=== PATIENT | male | born 1935 | race Caucasian/White ===

== ENCOUNTER 2016-11-28 10:27 | Inpatient (IN) | payer BC, MEDICARE ==
[2016-11-28] VITALS (90 sets, daily range): BP systolic 89–104; BP diastolic 45–89; PULSE 68–88; TEMP 97.1–98.9; O2SAT 83–100
[~2016-11-28] VITALS: Ht 167.6 cm; Wt 128.0 kg
[~2016-11-28 10:27] MED LIST: ACIPHEX20 MG PO; ALTACE 5MG5 MG PO; ALTACE2.5 MG PO; AMBIEN 10MG10 M1 PO; AMBIEN 10MG10 MG PO; ASPIR-LOW81 MG PO; ASPIRIN 81M81 MG/TA2 PO; ASPIRIN E.C. 8181 MG PO; BYSTOLIC PO; BYSTOLIC10 MG PO; CALCIUM 6001 TA1 PO; CARDI-OMEGA1000 MG PO; CARDIOSTEROL; CARDIOSTEROL PO; CIPRO 500MG TA500 MG PO; COUMADIN 22.5 MG/TAB PO; COUMADIN 5MG5 MG/TAB PO; COUMADIN4 MG PO; COUMADIN5 MG PO; DEMADEX20 MG PO; DOXYCYCLINE 10100 MG PO; FISH OIL1000 MG PO; FLEXERIL 1010 MG/TAB PO; FLONASE NASAL S16 GM NS; FLONASEALLERGY NS; FLOVENT 110MCG7.9 GM IH; FOLIC ACID1 MG PO; INSPRA50 MG PO; KLOR-CON 1010 MEQ PO; LANSOPRAZOLE30 MG PO; LASIX 40MG TABL40 MG PO; LASIX 80MG TABL80 MG PO; LASIX80 MG PO; MAG-OX 400400 MG/TAB PO; MAGNESIUM200 MG PO; MUCINEX 60600 MG/TA1 PO; MUCINEX600 M1 PO; MULTAQ400 MG PO; MULTIPLE VITAMI1 CAP PO; NIASPAN 500MG500 MG PO; NIASPAN500 MG PO; NITROSTAT0.4 MG/TAB SL; NORCO 325 MG-51 TAB PO; PEN-VEE K500 MG PO; PHENERGAN W/CO120 ML PO; POTASSIUM CH2 MEQ/ML PO; PREVACID 30MG30 M1 PO; PREVACID 30MG30 MG PO; PROMETHAZINE V473 M2 PO; REQUIP 0.5MG0.5 MG PO; REQUIP0.25 MG PO; SINGULAIR 110 MG/TAB PO; TIKOSYN PO; TIKOSYN0.5 MG PO; TRAMADOL PO; ULTRAM ER100 MG PO; ULTRAM100 MG PO; VITAMIN; VITAMIN C BUFF500 MG PO; VITAMIN C500 MG PO; VITAMIN D1000 IU PO; XOPENEX 1.1.25 MG/3 IH
[2016-11-28 12:00] LABS: BASO % 0.5 % (0.0-2.0); EOS % 0.5 % (0-4.0); GRAN # 6.4 (1.4-6.5); GRAN % 77.8 % (42.2-75.2); LYMPH # 0.8 (1.2-3.4); LYMPH % 9.6 % (20.0-51.0); MEAN CELL VOLUME 94 fl (80.0-100.0); MEAN CORPUSCULAR HGB CONC 33 g/dl (33.0-37.0); MEAN PLATELET VOLUME 9.4 fl (7.4-10.4); MONO # 0.9 (0.1-0.6); PLATELET COUNT 206 K/mm3 (130-400); REDCELL DISTRIBUTION WIDTH-CV 16.6 % (11.5-14.5); WHITE BLOOD COUNT 8.3 K/mm3 (4.8-10.8)
[2016-11-28 12:08] LABS: HEMATOCRIT 30.2 % (42.0-52.0); HEMOGLOBIN 9.9 g/dl (13.5-18.0); MEAN CORPUSCULAR HEMOGLOBIN 31 pg (27.0-31.0)
[2016-11-28 12:13] LABS: INR 2.3 (0.8-3.0); PROTHROMBIN TIME 26.2 SECONDS (9.7-12.8)
[2016-11-28 12:16] LABS: PARTIAL THROMBOPLASTIN TIME 41.1 SECONDS (26.0-37.0)
[2016-11-28 12:30] LABS: ADJUSTED CALCIUM 9.5 mg/dL (8.4-10.2); ALANINE AMINOTRANSFERASE 29 U/L (21-72); ALBUMIN 4.1 gm/dL (3.5-5.0); ALKALINE PHOSPHATASE 144 U/L (50-136); ANION GAP 15 mmol/L (7-16); BILIRUBIN,TOTAL 1.4 mg/dL (0.0-1.0); CALCIUM 9.6 mg/dL (8.4-10.2); CARBON DIOXIDE 22 mmol/L (22-30); CHLORIDE 98 mmol/L (98-107); CREATININE, serum 2.52 mg/dL (0.66-1.25); GLUCOSE 114 mg/dL (74-106); MAGNESIUM 3.1 mg/dL (1.6-2.3); PHOSPHOROUS 5.2 mg/dL (2.5-4.5); SODIUM 135 mmol/L (137-145); TOTAL PROTEIN 8.7 gm/dL (6.4-8.2)
[2016-11-28 12:37] LABS: AMMONIA 14 umol/L (11-35)
[2016-11-28 12:41] LABS: POTASSIUM 6.1 mmol/L (3.4-5.0)
[2016-11-28 12:42] LABS: BLOOD UREA NITROGEN 83 mg/dL (9-20)
[2016-11-28 12:43] LABS: TROPONIN-I < 0.012 ng/mL (0.000-0.034)
[2016-11-28 12:54] LABS: PH 5 (5-8); SQUAMOUS EPITHELIAL 0-2 /hpf; URINE APPEARANCE Clear; URINE BACTERIA None Seen /hpf; URINE BILIRUBIN Negative (NEGATIVE); URINE BLOOD Negative (NEGATIVE); URINE COLOR Yellow; URINE GLUCOSE Negative (NEGATIVE); URINE KETONE Negative (NEGATIVE); URINE RBC 0-2 /hpf; URINE UROBILINOGEN Negative (NEGATIVE); URINE WBC 0-2 /hpf
[2016-11-28] MEDS ORDERED: ULORIC40 MG PO (16:24)
[2016-11-28] MEDS ORDERED: NEURONTIN100 MG/CAP PO (16:24)
[2016-11-28] MEDS ORDERED: CEPHALEXIN500 M1 PO (16:25)
[2016-11-28] MEDS ORDERED: ZOHYDRO ER10 MG PO (16:25)
[2016-11-28] MEDS ORDERED: COZAAR 50MG50 MG/TAB PO (16:26)
[2016-11-28 18:00] LABS: CALCIUM 9.8 mg/dL (8.4-10.2); CREATININE, serum 2.43 mg/dL (0.66-1.25)
[2016-11-28 18:03] LABS: POTASSIUM 6.1 mmol/L (3.4-5.0)
[2016-11-28] MEDS ORDERED: FLEXERIL 1010 MG/TAB PO (19:00)
[2016-11-28 19:12] LABS: THYROID STIMULATING HORMONE 2.52 uIU/mL (0.465-4.680)
[2016-11-29] VITALS (1167 sets, daily range): BP systolic 99–125; BP diastolic 51–95; PULSE 60–74; TEMP 97.6–98.5; O2SAT 71–100
[2016-11-29 04:28] LABS: BASO % 0.5 % (0.0-2.0); EOS # 0.1 (0.0-0.7); EOS % 0.6 % (0-4.0); GRAN % 72.7 % (42.2-75.2); LYMPH # 1.1 (1.2-3.4); LYMPH % 13.9 % (20.0-51.0); MEAN CELL VOLUME 97 fl (80.0-100.0); MEAN CORPUSCULAR HGB CONC 31 g/dl (33.0-37.0); MEAN PLATELET VOLUME 9.1 fl (7.4-10.4); MONO % 11.7 % (1.7-9.3); PLATELET COUNT 178 K/mm3 (130-400); RED BLOOD COUNT 3.04 M/mm3 (4.20-5.60); REDCELL DISTRIBUTION WIDTH-CV 17.1 % (11.5-14.5); WHITE BLOOD COUNT 8.2 K/mm3 (4.8-10.8)
[2016-11-29 04:29] LABS: HEMATOCRIT 29.4 % (42.0-52.0); HEMOGLOBIN 9.2 g/dl (13.5-18.0); MEAN CORPUSCULAR HEMOGLOBIN 30 pg (27.0-31.0)
[2016-11-29 04:34] LABS: INR 2.4 (0.8-3.0); PROTHROMBIN TIME 27.9 SECONDS (9.7-12.8)
[2016-11-29 04:44] LABS: CALCIUM 8.9 mg/dL (8.4-10.2); CREATININE, serum 2.23 mg/dL (0.66-1.25); PHOSPHOROUS 6.2 mg/dL (2.5-4.5)
[2016-11-29 22:26] LABS: CREATININE, serum 1.72 mg/dL (0.66-1.25); SODIUM 136 mmol/L (137-145)
[2016-11-29 22:56] LABS: URINE 24 HOUR CREATININE 1.1 gm/24 hr (1.0-2.0)
[2016-11-30] VITALS (1221 sets, daily range): BP systolic 100–136; BP diastolic 52–118; PULSE 60–70; TEMP 97.8–98.7; O2SAT 62–100
[2016-11-30 04:54] LABS: BASO % 0.7 % (0.0-2.0); EOS # 0.1 (0.0-0.7); GRAN # 3.9 (1.4-6.5); GRAN % 71.8 % (42.2-75.2); LYMPH # 0.8 (1.2-3.4); LYMPH % 15.5 % (20.0-51.0); MEAN CELL VOLUME 98 fl (80.0-100.0); MEAN CORPUSCULAR HGB CONC 31 g/dl (33.0-37.0); MEAN PLATELET VOLUME 9.3 fl (7.4-10.4); MONO # 0.5 (0.1-0.6); MONO % 9.4 % (1.7-9.3); PLATELET COUNT 132 K/mm3 (130-400); RED BLOOD COUNT 3.38 M/mm3 (4.20-5.60); REDCELL DISTRIBUTION WIDTH-CV 16.7 % (11.5-14.5); WHITE BLOOD COUNT 5.4 K/mm3 (4.8-10.8)
[2016-11-30 04:58] LABS: HEMATOCRIT 33.1 % (42.0-52.0); HEMOGLOBIN 10.2 g/dl (13.5-18.0); MEAN CORPUSCULAR HEMOGLOBIN 30 pg (27.0-31.0)
[2016-11-30 05:11] LABS: CALCIUM 8.7 mg/dL (8.4-10.2); CREATININE, serum 1.72 mg/dL (0.66-1.25); POTASSIUM 4.6 mmol/L (3.4-5.0)
[2016-11-30 14:31] LABS: ALBUMIN FRACTION 3.2 g/dL (2.6-4.5); ALBUMIN PERCENTAGE 46.4 % (48.7-61.8); ALPHA 1 FRACTION 0.5 g/dL (0.3-0.5); ALPHA 1 PERCENTAGE 6.7 % (3.4-8.3); ALPHA 2 FRACTION 0.8 g/dL (0.6-1.2); BETA 1 FRACTION 0.4 g/dL (0.4-0.6); BETA 2 FRACTION 0.5 g/dL (0.2-0.5); BETA 2 PERCENTAGE 6.6 % (3.8-7.7); GAMMA FRACTION 1.5 g/dL (0.4-1.7); GAMMA PERCENTAGE 22.3 % (8.1-23.0); MONOCLONAL 1 FRACTION 0.2 g/dL (()); SERUM PROTEIN TOTAL 6.8 g/dL (6.0-7.6)
[2016-11-30 23:44] LABS: PROTEIN TIMED URINE 304.5 mg/24hrs (0.0-299.0)
[2016-12-01] VITALS (509 sets, daily range): BP systolic 114–141; BP diastolic 46–91; PULSE 63–98; TEMP 97.7–98.5; O2SAT 66–100
[2016-12-01 06:06] LABS: BASO % 0.4 % (0.0-2.0); EOS # 0.1 (0.0-0.7); EOS % 1.3 % (0-4.0); GRAN # 3.9 (1.4-6.5); GRAN % 75.6 % (42.2-75.2); LYMPH # 0.7 (1.2-3.4); LYMPH % 13.3 % (20.0-51.0); MEAN CELL VOLUME 99 fl (80.0-100.0); MEAN CORPUSCULAR HGB CONC 31 g/dl (33.0-37.0); MEAN PLATELET VOLUME 9.2 fl (7.4-10.4); MONO # 0.5 (0.1-0.6); PLATELET COUNT 147 K/mm3 (130-400); RED BLOOD COUNT 2.73 M/mm3 (4.20-5.60); REDCELL DISTRIBUTION WIDTH-CV 16.6 % (11.5-14.5); WHITE BLOOD COUNT 5.2 K/mm3 (4.8-10.8)
[2016-12-01 06:10] LABS: CALCIUM 8.9 mg/dL (8.4-10.2); CREATININE, serum 1.49 mg/dL (0.66-1.25); POTASSIUM 4.4 mmol/L (3.4-5.0)
[2016-12-01 06:19] LABS: HEMATOCRIT 26.9 % (42.0-52.0); HEMOGLOBIN 8.4 g/dl (13.5-18.0); MEAN CORPUSCULAR HEMOGLOBIN 31 pg (27.0-31.0)
[2016-12-01 12:41] LABS: KAPPA FREE LIGHT CHAIN-SERUM 11.2 mg/dL (()); KAPPA LAMBDA RATIO 1.7 (())
[2016-12-02 03:49] VITALS: BP 137/63; PULSE 65; TEMP 97.7
[2016-12-02 09:00] VITALS: BP 118/53; PULSE 69; TEMP 98.4
[2016-12-02 10:51] LABS: CALCIUM 9.3 mg/dL (8.4-10.2); CREATININE, serum 1.34 mg/dL (0.66-1.25); POTASSIUM 4.2 mmol/L (3.4-5.0)
[2016-12-02 12:01] VITALS: BP 145/80; PULSE 72; TEMP 98.1
[2016-12-02 15:40] VITALS: BP 137/58; PULSE 64; TEMP 98.2
[2016-12-02 20:31] VITALS: BP 129/58; PULSE 66; TEMP 99.2
[2016-12-02 22:38] VITALS: BP 137/51; PULSE 67; TEMP 98
[2016-12-03 04:03] VITALS: BP 145/54; PULSE 68; TEMP 98.2
[2016-12-03 07:20] LABS: INR 2.5 (0.8-3.0); PROTHROMBIN TIME 28.3 SECONDS (9.7-12.8)
[2016-12-03 07:27] LABS: CALCIUM 9.4 mg/dL (8.4-10.2); CREATININE, serum 1.22 mg/dL (0.66-1.25)
[2016-12-03 07:57] VITALS: BP 132/49; PULSE 68; TEMP 98.4
[2016-12-03] MEDS ORDERED: CLARITIN 1010 MG/TAB PO (11:17)
[2016-12-03] MEDS ORDERED: NEURONTIN100 MG/CAP PO (11:18)
[2016-12-03] MEDS ORDERED: THIAMINE 1100 MG/TAB PO (11:18)
[2016-12-03] MEDS ORDERED: FOLIC ACID 11 MG/TA1 PO (11:18)
[2016-12-03] MEDS ORDERED: NORCO 325 MG-51 TAB PO (11:19)
[2016-12-03] MEDS ORDERED: LASIX 20MG TABL20 MG PO (11:49)
[2016-12-03 11:51] VITALS: BP 137/60; PULSE 78; TEMP 98.3
[2016-12-03] MEDS ORDERED: ILOTYCIN5 MG/GM OU (11:51)
[2016-12-03 13:53] VITALS: BP 137/60; PULSE 78; TEMP 98.3
[2016-12-24 15:49] LABS: ALBUMIN FRACTION 3.2 g/dL (2.6-4.5); ALBUMIN PERCENT 46.4 % (48.7-61.8); ALPHA 1 FRACTION 0.5 g/dL (0.3-0.5); ALPHA 1 PERCENT 6.7 % (3.4-8.3); ALPHA 2 FRACTION 0.8 g/dL (0.6-1.2); BETA 1 FRACTION 0.4 g/dL (0.4-0.6); BETA 2 FRACTION 0.5 g/dL (0.2-0.5); BETA 2 PERCENT 6.6 % (3.8-7.7); IEPS GAMMA FRACTION 1.5 g/dL (0.4-1.7); IEPS GAMMA PERCENTAGE 22.3 % (8.1-23.0); IEPS IGA 335 mg/dL (101-645); IEPS IGG 1605 mg/dL (540-1822); IEPS IGM 100 mg/dL (22-240); IEPS MON1E 0.2 g/dL (()); IEPS TP 6.8 g/dL (6.0-7.6)
[2017-01-15] MEDS ORDERED: LEVAQUIN 5500 MG/TA1 PO (14:12)
[2017-01-15] MEDS ORDERED: COUMADIN 5MG5 MG/TAB PO (14:14)
[2017-01-15] MEDS ORDERED: COUMADIN 22.5 MG/TAB PO (14:15)
== END 2016-12-03 14:30 | DRG 682 ==
LOC: COL.ER 10:27 → IMCU 13:11 → MEDICAL 13:11
PROVIDERS: Emergency Medicine; Family Medicine; Internal Medicine Nephrology; Psychiatry & Neurology Neurology
DX: N17.0 Acute kidney failure with tubular necrosis (principal); G93.41 Metabolic encephalopathy; I50.30 Unspecified diastolic (congestive) heart failure; L97.321 Non-pressure chronic ulcer of left ankle limited to breakdown of skin; Z68.41 Body mass index [BMI] 40.0-44.9, adult; E87.5 Hyperkalemia; I10 Essential (primary) hypertension; G47.33 Obstructive sleep apnea (adult) (pediatric); E66.01 Morbid (severe) obesity due to excess calories; I35.0 Nonrheumatic aortic (valve) stenosis; G25.5 Other chorea; E78.5 Hyperlipidemia, unspecified; Z86.718 Personal history of other venous thrombosis and embolism; Z79.01 Long term (current) use of anticoagulants; Z95.1 Presence of aortocoronary bypass graft; Z86.73 Personal history of transient ischemic attack (TIA), and cerebral infarction without residual deficits; Z87.891 Personal history of nicotine dependence; Z95.0 Presence of cardiac pacemaker
CPT/HCPCS: 99223-AI; 99233-AI; 99239; J0610; J1170; J1560; J1644; J1815; J2060; J3360; J7030

== ENCOUNTER → 2016-12-06 | Outpatient (CLI) | payer BC, MEDICARE ==
[~2016-12-06] MED LIST changes: +BUMEX 1MG TA1 MG/TA1 PO; +CEPHALEXIN500 M1 PO; +CLARITIN 1010 MG/TAB PO; +COZAAR 50MG50 MG/TAB PO; +FOLIC ACID 11 MG/TA1 PO; +ILOTYCIN5 MG/GM OU; +INSPRA25 MG PO; +LASIX 20MG TABL20 MG PO; +LEVAQUIN 5500 MG/TA1 PO; +LYRICA 50MG CAP50 MG PO; +MIRALAX PA17 GM/Dose PO; +MUCINEX CHILD2 PO; +NEURONTIN100 MG/CAP PO; +NORCO 325 MG-7.1 TAB PO; +NYAMYC100000 U/G TP; +REQUIP2 MG PO; +THIAMINE 1100 MG/TAB PO; +TOPROL XL 50MG50 MG PO; +ULORIC40 MG PO; +ZAROXOLYN5 MG PO; +ZOHYDRO ER10 MG PO
== END ==
LOC: ZCOL.LAB 19:58
DX: R50.9 Fever, unspecified (principal)

== ENCOUNTER → 2016-12-17 | Outpatient (REF) ==
[2016-12-17 18:32] LABS: MEAN CELL VOLUME 100 fl (80.0-100.0); MEAN CORPUSCULAR HGB CONC 30 g/dl (33.0-37.0); MEAN PLATELET VOLUME 10.4 fl (7.4-10.4); PLATELET COUNT 204 K/mm3 (130-400); RED BLOOD COUNT 2.81 M/mm3 (4.20-5.60); REDCELL DISTRIBUTION WIDTH-CV 15.9 % (11.5-14.5); WHITE BLOOD COUNT 4.7 K/mm3 (4.8-10.8)
[2016-12-17 18:38] LABS: HEMOGLOBIN 8.3 g/dl (13.5-18.0); MEAN CORPUSCULAR HEMOGLOBIN 30 pg (27.0-31.0)
== END ==
LOC: ZCOL.LAB 18:09
PROVIDERS: Internal Medicine
DX: Z01.89 Encounter for other specified special examinations (principal)

== ENCOUNTER 2016-12-27 16:00 | Inpatient (IN) | payer BC, MEDICARE ==
[~2016-12-27] VITALS: Ht 167.6 cm; Wt 135.8 kg
[~2016-12-27 16:00] MED LIST changes: -BUMEX 1MG TA1 MG/TA1 PO; -INSPRA25 MG PO; -LEVAQUIN 5500 MG/TA1 PO; -LYRICA 50MG CAP50 MG PO; -MIRALAX PA17 GM/Dose PO; -MUCINEX CHILD2 PO; -NORCO 325 MG-7.1 TAB PO; -NYAMYC100000 U/G TP; -REQUIP2 MG PO; -TOPROL XL 50MG50 MG PO; -ZAROXOLYN5 MG PO
[2016-12-27] MEDS ORDERED: NYAMYC100000 U/G TP (16:21)
[2016-12-27] MEDS ORDERED: LYRICA 50MG CAP50 MG PO (16:22)
[2016-12-27] MEDS ORDERED: MIRALAX PA17 GM/Dose PO (16:23)
[2016-12-27] MEDS ORDERED: NORCO 325 MG-7.1 TAB PO (16:25)
[2016-12-27] MEDS ORDERED: TOPROL XL 50MG50 MG PO (16:26)
[2016-12-27] MEDS ORDERED: ASPIRIN 81M81 MG/TA2 PO (16:26)
[2016-12-27] MEDS ORDERED: NITROSTAT0.4 MG/TAB SL (16:27)
[2016-12-27] MEDS ORDERED: BUMEX 1MG TA1 MG/TA1 PO (16:28)
[2016-12-27] MEDS ORDERED: INSPRA25 MG PO (16:29)
[2016-12-27] MEDS ORDERED: CIPRO 500MG TA500 MG PO (16:29)
[2016-12-27] MEDS ORDERED: REQUIP2 MG PO (17:26)
[2016-12-27 17:30] LABS: BASO % 0.5 % (0.0-2.0); EOS # 0.1 (0.0-0.7); EOS % 1.9 % (0-4.0); GRAN # 4.9 (1.4-6.5); GRAN % 77.4 % (42.2-75.2); HEMATOCRIT 28.6 % (42.0-52.0); HEMOGLOBIN 8.7 g/dl (13.5-18.0); LYMPH # 0.8 (1.2-3.4); MEAN CELL VOLUME 97 fl (80.0-100.0); MEAN CORPUSCULAR HEMOGLOBIN 29 pg (27.0-31.0); MEAN CORPUSCULAR HGB CONC 30 g/dl (33.0-37.0); MEAN PLATELET VOLUME 10.5 fl (7.4-10.4); MONO # 0.4 (0.1-0.6); MONO % 6.7 % (1.7-9.3); PLATELET COUNT 141 K/mm3 (130-400); RED BLOOD COUNT 2.96 M/mm3 (4.20-5.60); REDCELL DISTRIBUTION WIDTH-CV 16.2 % (11.5-14.5); WHITE BLOOD COUNT 6.3 K/mm3 (4.8-10.8)
[2016-12-27 17:33] LABS: PROTHROMBIN TIME 34.1 SECONDS (9.7-12.8)
[2016-12-27 17:42] LABS: ADJUSTED CALCIUM 9.1 mg/dL (8.4-10.2); ALBUMIN 3.9 gm/dL (3.5-5.0); CREATININE, serum 2.08 mg/dL (0.66-1.25); TOTAL PROTEIN 8.1 gm/dL (6.4-8.2)
[2016-12-27 17:44] VITALS: BP 117/55; PULSE 70; TEMP 98
[2016-12-27 21:19] VITALS: BP 109/85; PULSE 77; TEMP 98.7
[2016-12-28 00:43] VITALS: BP 115/78; PULSE 84; TEMP 98.9
[2016-12-28 03:35] VITALS: BP 109/74; PULSE 81; TEMP 98.7
[2016-12-28 07:31] LABS: INR 2.5 (0.8-3.0); PROTHROMBIN TIME 28.6 SECONDS (9.7-12.8)
[2016-12-28 07:55] LABS: CREATININE, serum 2.07 mg/dL (0.66-1.25); POTASSIUM 3.6 mmol/L (3.4-5.0)
[2016-12-28 08:18] VITALS: BP 136/67; PULSE 70; TEMP 97.6
[2016-12-28 11:30] VITALS: BP 114/67; PULSE 80; TEMP 97.5
[2016-12-28 16:06] VITALS: BP 114/60; PULSE 63; TEMP 98.1
[2016-12-28 21:26] VITALS: BP 149/67; PULSE 53; TEMP 97.6
[2016-12-29 01:29] VITALS: BP 150/64; PULSE 66; TEMP 97.6
[2016-12-29 05:15] VITALS: BP 125/58; PULSE 50; TEMP 97.6
[2016-12-29 08:28] VITALS: BP 134/62; PULSE 93; TEMP 97.9
[2016-12-29 09:15] LABS: INR 1.7 (0.8-3.0); PROTHROMBIN TIME 19.4 SECONDS (9.7-12.8)
[2016-12-29 09:39] LABS: CALCIUM 9.3 mg/dL (8.4-10.2); CREATININE, serum 2.11 mg/dL (0.66-1.25); POTASSIUM 3.3 mmol/L (3.4-5.0)
[2016-12-29] MEDS ORDERED: BUMEX 1MG TA1 MG/TA1 PO (12:17)
[2016-12-29] MEDS ORDERED: ZAROXOLYN5 MG PO (12:19)
[2016-12-29 12:27] VITALS: BP 125/64; PULSE 57
[2016-12-29 12:31] VITALS: BP 140/78; PULSE 59; TEMP 98.5
[2017-01-15] MEDS ORDERED: LEVAQUIN 5500 MG/TA1 PO (14:12)
[2017-01-15] MEDS ORDERED: COUMADIN 5MG5 MG/TAB PO (14:14)
[2017-01-15] MEDS ORDERED: COUMADIN 22.5 MG/TAB PO (14:15)
== END 2016-12-29 14:20 | disposition home health service (06) | DRG 641 ==
LOC: MEDICAL 16:00
PROVIDERS: Internal Medicine Nephrology
DX: E87.70 Fluid overload, unspecified (principal); N17.9 Acute kidney failure, unspecified; L03.115 Cellulitis of right lower limb; Z68.42 Body mass index [BMI] 45.0-49.9, adult; I48.91 Unspecified atrial fibrillation; E66.01 Morbid (severe) obesity due to excess calories; I12.9 Hypertensive chronic kidney disease with stage 1 through stage 4 chronic kidney disease, or unspecified chronic kidney disease; N18.3 Chronic kidney disease, stage 3 (moderate); D50.9 Iron deficiency anemia, unspecified; Z95.0 Presence of cardiac pacemaker; Z86.73 Personal history of transient ischemic attack (TIA), and cerebral infarction without residual deficits; Z86.718 Personal history of other venous thrombosis and embolism; Z87.891 Personal history of nicotine dependence; Z95.1 Presence of aortocoronary bypass graft; Z79.01 Long term (current) use of anticoagulants
CPT/HCPCS: J2916

== ENCOUNTER 2016-12-31 09:55 | Day surgery (SDC) | payer BC, MEDICARE ==
[~2016-12-31] VITALS: Ht 167.6 cm; Wt 133.9 kg
[~2016-12-31 09:55] MED LIST changes: +BUMEX 1MG TA1 MG/TA1 PO; +INSPRA25 MG PO; +LYRICA 50MG CAP50 MG PO; +MIRALAX PA17 GM/Dose PO; +NORCO 325 MG-7.1 TAB PO; +NYAMYC100000 U/G TP; +REQUIP2 MG PO; +TOPROL XL 50MG50 MG PO; +ZAROXOLYN5 MG PO
[2016-12-31 10:58] VITALS: BP 150/75; PULSE 80; TEMP 98
[2016-12-31 12:33] LABS: INR 1.5 (0.8-3.0); PROTHROMBIN TIME 17.3 SECONDS (9.7-12.8)
[2016-12-31 14:17] VITALS: BP 115/82; PULSE 68; TEMP 98
[2016-12-31 14:32] VITALS: BP 135/99; PULSE 64
[2016-12-31 14:47] VITALS: BP 122/48; PULSE 66
[2016-12-31 15:02] VITALS: BP 111/82; PULSE 66
[2017-01-15] MEDS ORDERED: LEVAQUIN 5500 MG/TA1 PO (14:12)
[2017-01-15] MEDS ORDERED: COUMADIN 5MG5 MG/TAB PO (14:14)
[2017-01-15] MEDS ORDERED: COUMADIN 22.5 MG/TAB PO (14:15)
== END 2016-12-31 15:35 | disposition home or self-care (01) ==
LOC: SDCO 09:55
PROVIDERS: Surgery
DX: R60.9 Edema, unspecified (principal); I50.9 Heart failure, unspecified; I12.9 Hypertensive chronic kidney disease with stage 1 through stage 4 chronic kidney disease, or unspecified chronic kidney disease; N18.3 Chronic kidney disease, stage 3 (moderate); I99.8 Other disorder of circulatory system; I73.9 Peripheral vascular disease, unspecified; Z79.01 Long term (current) use of anticoagulants; I48.91 Unspecified atrial fibrillation; Z86.73 Personal history of transient ischemic attack (TIA), and cerebral infarction without residual deficits; Z87.891 Personal history of nicotine dependence; I25.10 Atherosclerotic heart disease of native coronary artery without angina pectoris; E66.01 Morbid (severe) obesity due to excess calories
CPT/HCPCS: C1788; J0690; J1644; J2405; J2704; J3010

== ENCOUNTER 2017-01-19 08:40 | Outpatient (RCR) | payer BC, MEDICARE ==
[2017-01-15 15:01] VITALS: BP 115/48; PULSE 66; TEMP 98.2
[2017-01-16 08:54] VITALS: BP 92/42; PULSE 97; TEMP 98.5
[2017-01-17 08:30] VITALS: BP 106/49; PULSE 66; TEMP 98.1
[2017-01-18 09:10] VITALS: BP 93/55; PULSE 53; TEMP 97.7
[2017-01-18 10:00] LABS: CREATININE, serum 2.28 mg/dL (0.66-1.25); POTASSIUM 3.7 mmol/L (3.4-5.0)
[2017-01-18 10:08] LABS: MEAN CELL VOLUME 95 fl (80.0-100.0); MEAN CORPUSCULAR HGB CONC 31 g/dl (33.0-37.0); MEAN PLATELET VOLUME 10.9 fl (7.4-10.4); PLATELET COUNT 133 K/mm3 (130-400); RED BLOOD COUNT 2.74 M/mm3 (4.20-5.60); REDCELL DISTRIBUTION WIDTH-CV 15.9 % (11.5-14.5); WHITE BLOOD COUNT 5.1 K/mm3 (4.8-10.8)
[2017-01-18 10:11] LABS: HEMATOCRIT 25.9 % (42.0-52.0); HEMOGLOBIN 7.9 g/dl (13.5-18.0); MEAN CORPUSCULAR HEMOGLOBIN 29 pg (27.0-31.0)
[~2017-01-19] VITALS: Ht 167.6 cm; Wt 133.0 kg
[~2017-01-19 08:40] MED LIST changes: +LEVAQUIN 5500 MG/TA1 PO
[2017-01-19 10:17] VITALS: BP 102/65; PULSE 72; TEMP 98
[2017-01-19 11:14] LABS: HEMATOCRIT 26.9 % (42.0-52.0); HEMOGLOBIN 8.3 g/dl (13.5-18.0)
[2017-01-19 12:49] VITALS: BP 111/59; PULSE 75; TEMP 97.9
[2017-01-19 13:04] VITALS: BP 90/44; PULSE 68; TEMP 97.8
[2017-01-19 13:34] VITALS: BP 112/66; PULSE 68; TEMP 97.3
[2017-01-19 14:23] VITALS: BP 105/55; PULSE 75; TEMP 97.3
[2017-01-20 08:28] VITALS: BP 107/85; PULSE 71; TEMP 98.4
[2017-01-21 08:43] LABS: MEAN CELL VOLUME 92 fl (80.0-100.0); MEAN CORPUSCULAR HGB CONC 31 g/dl (33.0-37.0); MEAN PLATELET VOLUME 10.5 fl (7.4-10.4); PLATELET COUNT 132 K/mm3 (130-400); REDCELL DISTRIBUTION WIDTH-CV 16.5 % (11.5-14.5)
[2017-01-21 08:48] LABS: HEMATOCRIT 27.6 % (42.0-52.0); HEMOGLOBIN 8.5 g/dl (13.5-18.0); MEAN CORPUSCULAR HEMOGLOBIN 28 pg (27.0-31.0)
[2017-01-21 08:52] LABS: CALCIUM 9.2 mg/dL (8.4-10.2); POTASSIUM 3.8 mmol/L (3.4-5.0)
[2017-01-21 09:01] LABS: CREATININE, serum 2.36 mg/dL (0.66-1.25)
[2017-01-21 09:36] VITALS: BP 105/45; PULSE 64; TEMP 97.9
[2017-01-22 12:44] VITALS: BP 103/47; PULSE 67; TEMP 97.6
[2017-01-23 08:58] VITALS: BP 102/45; PULSE 71; TEMP 97.6
[2017-01-25 08:30] VITALS: BP 98/55; PULSE 67; TEMP 97.9
[2017-01-25 08:43] LABS: MEAN CELL VOLUME 92 fl (80.0-100.0); MEAN CORPUSCULAR HGB CONC 31 g/dl (33.0-37.0); MEAN PLATELET VOLUME 10.7 fl (7.4-10.4); PLATELET COUNT 124 K/mm3 (130-400); RED BLOOD COUNT 3.05 M/mm3 (4.20-5.60); REDCELL DISTRIBUTION WIDTH-CV 16.5 % (11.5-14.5); WHITE BLOOD COUNT 5.1 K/mm3 (4.8-10.8)
[2017-01-25 08:45] LABS: HEMATOCRIT 28.1 % (42.0-52.0); HEMOGLOBIN 8.8 g/dl (13.5-18.0); MEAN CORPUSCULAR HEMOGLOBIN 29 pg (27.0-31.0)
[2017-01-25 08:56] LABS: CREATININE, serum 2.36 mg/dL (0.66-1.25); POTASSIUM 3.6 mmol/L (3.4-5.0)
[2017-01-25 09:13] LABS: VANCOMYCIN TROUGH 19.38 ug/mL (7.00-20.00)
[2017-01-26 08:00] VITALS: BP 100/49; PULSE 68; TEMP 98
[2017-01-27 08:09] VITALS: BP 104/58; PULSE 67; TEMP 97.7
[2017-01-28 08:29] VITALS: BP 101/48; PULSE 62; TEMP 97.9
[2017-01-31] MEDS ORDERED: INSPRA25 MG PO (13:10)
[2017-01-31] MEDS ORDERED: MUCINEX CHILD2 PO (13:15)
== END 2017-04-15 | disposition home or self-care (01) ==
LOC: EUO → PEDS 08:40 → EUO 15:00
PROVIDERS: Internal Medicine
DX: L03.115 Cellulitis of right lower limb (principal); Z45.2 Encounter for adjustment and management of vascular access device
CPT/HCPCS: OP; J1644; J3370; J7050; P9016

== ENCOUNTER 2017-01-31 12:26 | Inpatient (IN) | payer BC, MEDICARE ==
[~2017-01-31] VITALS: Ht 162.6 cm; Wt 118.0 kg
[2017-01-31] MEDS ORDERED: INSPRA25 MG PO (13:10)
[2017-01-31] MEDS ORDERED: MUCINEX CHILD2 PO (13:15)
[2017-01-31 13:34] LABS: BASO % 0.6 % (0.0-2.0); EOS # 0.1 (0.0-0.7); EOS % 1.2 % (0-4.0); GRAN % 75.8 % (42.2-75.2); LYMPH # 0.9 (1.2-3.4); LYMPH % 13.4 % (20.0-51.0); MEAN CELL VOLUME 90 fl (80.0-100.0); MEAN CORPUSCULAR HGB CONC 32 g/dl (33.0-37.0); MEAN PLATELET VOLUME 11.5 fl (7.4-10.4); MONO # 0.6 (0.1-0.6); MONO % 8.5 % (1.7-9.3); PLATELET COUNT 117 K/mm3 (130-400); REDCELL DISTRIBUTION WIDTH-CV 16.8 % (11.5-14.5); WHITE BLOOD COUNT 6.6 K/mm3 (4.8-10.8)
[2017-01-31 13:38] LABS: MAGNESIUM 2.3 mg/dL (1.6-2.3); PHOSPHOROUS 4.6 mg/dL (2.5-4.5)
[2017-01-31 13:39] LABS: HEMATOCRIT 29.8 % (42.0-52.0); HEMOGLOBIN 9.4 g/dl (13.5-18.0); MEAN CORPUSCULAR HEMOGLOBIN 28 pg (27.0-31.0)
[2017-01-31 14:02] LABS: ADJUSTED CALCIUM 9.1 mg/dL (8.4-10.2); ALBUMIN 4.1 gm/dL (3.5-5.0); BILIRUBIN,TOTAL 1.5 mg/dL (0.0-1.0); CALCIUM 9.2 mg/dL (8.4-10.2); CREATININE, serum 2.22 mg/dL (0.66-1.25); POTASSIUM 3.7 mmol/L (3.4-5.0); TOTAL PROTEIN 8.4 gm/dL (6.4-8.2)
[2017-01-31 14:14] LABS: PH 6 (5-8); SQUAMOUS EPITHELIAL 0-2 /hpf; URINE APPEARANCE Clear; URINE BACTERIA None Seen /hpf; URINE BILIRUBIN Negative (NEGATIVE); URINE BLOOD Negative (NEGATIVE); URINE COLOR Yellow; URINE GLUCOSE Negative (NEGATIVE); URINE KETONE Negative (NEGATIVE); URINE RBC 0-2 /hpf; URINE UROBILINOGEN Negative (NEGATIVE); URINE WBC None Seen /hpf
[2017-01-31 16:37] VITALS: BP 121/78; PULSE 89; TEMP 97.5
[2017-01-31 20:34] VITALS: BP 109/75; PULSE 70; TEMP 98.6
[2017-01-31 23:39] VITALS: BP 103/40; PULSE 90; TEMP 98.5
[2017-02-01 03:20] VITALS: BP 101/50; PULSE 74; TEMP 98.5
[2017-02-01 07:28] VITALS: BP 121/32; BP 124/72; PULSE 75; TEMP 97.6
[2017-02-01 08:10] LABS: BASO % 0.6 % (0.0-2.0); EOS # 0.1 (0.0-0.7); EOS % 2.7 % (0-4.0); GRAN # 3.8 (1.4-6.5); GRAN % 72.3 % (42.2-75.2); LYMPH # 0.8 (1.2-3.4); LYMPH % 15.7 % (20.0-51.0); MEAN CELL VOLUME 93 fl (80.0-100.0); MEAN CORPUSCULAR HGB CONC 31 g/dl (33.0-37.0); MEAN PLATELET VOLUME 10.8 fl (7.4-10.4); MONO # 0.4 (0.1-0.6); MONO % 8.3 % (1.7-9.3); PLATELET COUNT 102 K/mm3 (130-400); RED BLOOD COUNT 3.03 M/mm3 (4.20-5.60); WHITE BLOOD COUNT 5.3 K/mm3 (4.8-10.8)
[2017-02-01 08:20] LABS: CALCIUM 9.3 mg/dL (8.4-10.2); CREATININE, serum 2.29 mg/dL (0.66-1.25); POTASSIUM 3.6 mmol/L (3.4-5.0)
[2017-02-01 08:27] LABS: INR 2.7 (0.8-3.0); PROTHROMBIN TIME 30.4 SECONDS (9.7-12.8)
[2017-02-01 08:28] LABS: HEMATOCRIT 28.2 % (42.0-52.0); HEMOGLOBIN 8.6 g/dl (13.5-18.0); MEAN CORPUSCULAR HEMOGLOBIN 28 pg (27.0-31.0)
[2017-02-01 10:50] LABS: ALBUMIN 3.6 gm/dL (3.5-5.0); BILIRUBIN,TOTAL 1.5 mg/dL (0.0-1.0); TOTAL PROTEIN 7.2 gm/dL (6.4-8.2)
[2017-02-01 11:02] LABS: BILIRUBIN,DIRECT 0.9 mg/dL (0.0-0.4)
[2017-02-01 11:44] VITALS: BP 108/77; PULSE 79; TEMP 99
[2017-02-01 17:03] VITALS: BP 138/107; PULSE 74; TEMP 97.6
[2017-02-01 17:39] VITALS: BP 112/56
[2017-02-01 20:12] VITALS: BP 178/85; PULSE 69; TEMP 99.3
[2017-02-02 00:35] VITALS: BP 150/74; PULSE 80; TEMP 97.6
[2017-02-02 04:12] VITALS: BP 166/51; PULSE 68; TEMP 98.8
[2017-02-02 07:25] LABS: BASO % 0.4 % (0.0-2.0); EOS # 0.1 (0.0-0.7); EOS % 1.3 % (0-4.0); GRAN # 5.4 (1.4-6.5); GRAN % 78.9 % (42.2-75.2); LYMPH # 0.7 (1.2-3.4); MEAN CELL VOLUME 91 fl (80.0-100.0); MEAN CORPUSCULAR HGB CONC 32 g/dl (33.0-37.0); MEAN PLATELET VOLUME 11.7 fl (7.4-10.4); MONO # 0.6 (0.1-0.6); PLATELET COUNT 107 K/mm3 (130-400); RED BLOOD COUNT 2.83 M/mm3 (4.20-5.60); REDCELL DISTRIBUTION WIDTH-CV 16.7 % (11.5-14.5); WHITE BLOOD COUNT 6.8 K/mm3 (4.8-10.8)
[2017-02-02 07:29] LABS: INR 2.9 (0.8-3.0); PROTHROMBIN TIME 33.7 SECONDS (9.7-12.8)
[2017-02-02 07:49] LABS: HEMATOCRIT 25.7 % (42.0-52.0); HEMOGLOBIN 8.1 g/dl (13.5-18.0); MEAN CORPUSCULAR HEMOGLOBIN 29 pg (27.0-31.0)
[2017-02-02 07:52] LABS: CREATININE, serum 2.52 mg/dL (0.66-1.25); POTASSIUM 3.3 mmol/L (3.4-5.0)
[2017-02-02 12:10] VITALS: BP 141/102; PULSE 79; TEMP 99.7
[2017-02-02 15:27] VITALS: BP 102/78; PULSE 78; TEMP 99
[2017-02-02 19:10] VITALS: BP 0001/1; BP 168/77; PULSE 72; TEMP 98.1
[2017-02-03] VITALS (8 sets, daily range): BP systolic 102–142; BP diastolic 55–76; PULSE 56–78; TEMP 97.1–98.6
[2017-02-03 07:08] LABS: BASO % 0.2 % (0.0-2.0); EOS % 0.2 % (0-4.0); GRAN % 82.2 % (42.2-75.2); LYMPH # 0.9 (1.2-3.4); LYMPH % 10.5 % (20.0-51.0); MEAN CELL VOLUME 90 fl (80.0-100.0); MEAN CORPUSCULAR HGB CONC 31 g/dl (33.0-37.0); MONO # 0.5 (0.1-0.6); MONO % 6.3 % (1.7-9.3); PLATELET COUNT 114 K/mm3 (130-400); RED BLOOD COUNT 3.17 M/mm3 (4.20-5.60); REDCELL DISTRIBUTION WIDTH-CV 16.5 % (11.5-14.5); WHITE BLOOD COUNT 8.5 K/mm3 (4.8-10.8)
[2017-02-03 07:09] LABS: AMMONIA < 9 umol/L (11-35)
[2017-02-03 07:14] LABS: HEMATOCRIT 28.6 % (42.0-52.0); HEMOGLOBIN 8.9 g/dl (13.5-18.0); MEAN CORPUSCULAR HEMOGLOBIN 28 pg (27.0-31.0)
[2017-02-03 07:27] LABS: ANION GAP 17 mmol/L (7-16); BLOOD UREA NITROGEN 83 mg/dL (9-20); CALCIUM 9.1 mg/dL (8.4-10.2); CARBON DIOXIDE 33 mmol/L (22-30); GLUCOSE 92 mg/dL (74-106); POTASSIUM 3.7 mmol/L (3.4-5.0); SODIUM 135 mmol/L (137-145)
[2017-02-03 07:29] LABS: CHLORIDE 85 mmol/L (98-107)
[2017-02-03 07:46] LABS: INR 3.1 (0.8-3.0); PROTHROMBIN TIME 35.1 SECONDS (9.7-12.8)
[2017-02-04 00:28] VITALS: BP 125/74; PULSE 80; TEMP 98.6
[2017-02-04 03:44] VITALS: BP 106/53; PULSE 68; PULSE 686; TEMP 98.4
[2017-02-04 08:36] VITALS: BP 109/46; PULSE 70; TEMP 97.5
[2017-02-04 12:00] VITALS: BP 105/58; PULSE 65; TEMP 97.5
[2017-02-04 13:29] VITALS: BP 105/58; PULSE 65; TEMP 97.5
[2017-02-05 17:26] LABS: TOTAL IRON BINDING CAPACITY 341 ug/dL (261-462)
== END 2017-02-04 14:24 | DRG 641 ==
LOC: COL.ER 12:26 → MEDICAL 14:55
PROVIDERS: Family Medicine; Internal Medicine
DX: E87.70 Fluid overload, unspecified (principal); L03.116 Cellulitis of left lower limb; Z68.42 Body mass index [BMI] 45.0-49.9, adult; R33.9 Retention of urine, unspecified; D47.2 Monoclonal gammopathy; I48.91 Unspecified atrial fibrillation; E66.01 Morbid (severe) obesity due to excess calories; D64.9 Anemia, unspecified; G47.33 Obstructive sleep apnea (adult) (pediatric); I08.2 Rheumatic disorders of both aortic and tricuspid valves; Z86.73 Personal history of transient ischemic attack (TIA), and cerebral infarction without residual deficits; Z86.718 Personal history of other venous thrombosis and embolism; Z95.0 Presence of cardiac pacemaker; Z87.891 Personal history of nicotine dependence; Z79.01 Long term (current) use of anticoagulants
CPT/HCPCS: J0881; J1644; J2916; J7512

== ENCOUNTER → 2017-03-07 | Outpatient (REF) ==
[~2017-03-07] MED LIST changes: +MUCINEX CHILD2 PO
[2017-03-07 11:57] LABS: CALCIUM 8.8 mg/dL (8.4-10.2); CREATININE, serum 1.58 mg/dL (0.66-1.25); POTASSIUM 3.7 mmol/L (3.4-5.0)
== END ==
LOC: ZMSC 11:11
PROVIDERS: Internal Medicine Nephrology
DX: Z01.89 Encounter for other specified special examinations (principal)

== ENCOUNTER → 2017-06-11 | Outpatient (CLI) | payer BC, MEDICARE | LOC: COL.RAD 07:46 | DX: R33.8 Other retention of urine (principal); N28.9 Disorder of kidney and ureter, unspecified; N28.1 Cyst of kidney, acquired; R18.8 Other ascites ==

== ENCOUNTER 2017-09-25 07:00 | Day surgery (SDC) | payer BC, MEDICARE ==
[~2017-09-25] VITALS: Ht 167.6 cm; Wt 121.4 kg
[2017-09-25] VITALS (11 sets, daily range): BP systolic 74–95; BP diastolic 42–64; PULSE 61–84; TEMP 97.5
[2017-09-25 07:54] LABS: MEAN CELL VOLUME 99 fl (80.0-100.0); MEAN CORPUSCULAR HGB CONC 31 g/dl (33.0-37.0); MEAN PLATELET VOLUME 10.8 fl (7.4-10.4); PLATELET COUNT 69 K/mm3 (130-400); RED BLOOD COUNT 2.63 M/mm3 (4.20-5.60); WHITE BLOOD COUNT 2.1 K/mm3 (4.8-10.8)
[2017-09-25 07:57] LABS: HEMATOCRIT 26.1 % (42.0-52.0); HEMOGLOBIN 8.2 g/dl (13.5-18.0); MEAN CORPUSCULAR HEMOGLOBIN 31 pg (27.0-31.0)
[2017-09-25 08:00] LABS: PROTHROMBIN TIME 35.5 SECONDS (9.7-12.8)
[2017-09-25] MEDS ORDERED: BUMEX2 MG PO (08:00)
[2017-09-25] MEDS ORDERED: COLCRYS0.6 MG PO (08:01)
[2017-09-25] MEDS ORDERED: ULORIC40 MG PO (08:02)
[2017-09-25] MEDS ORDERED: FOLIC ACID 11 MG/TA1 PO (08:03)
[2017-09-25] MEDS ORDERED: CLARITIN 1010 MG/TAB PO (08:05)
[2017-09-25 08:06] LABS: CALCIUM 9.2 mg/dL (8.4-10.2); CREATININE, serum 3.47 mg/dL (0.66-1.25); POTASSIUM 4.3 mmol/L (3.4-5.0)
[2017-09-25] MEDS ORDERED: MILK OF MA400 MG/52 PO (08:06)
[2017-09-25] MEDS ORDERED: MELAT3MGTAB PO (08:06)
[2017-09-25] MEDS ORDERED: TRIAMCINOLONE A15 G3 TP (08:07)
[2017-09-25] MEDS ORDERED: NATURE'S BLEND100 M2 PO (08:07)
[2017-09-25] MEDS ORDERED: COUMADIN 1MG1 MG/TAB PO (08:09)
[2017-09-25] MEDS ORDERED: PACERONE200 MG PO (13:51)
== END 2017-09-25 14:41 | disposition home or self-care (01) ==
LOC: COL.CAR 07:00
PROVIDERS: Internal Medicine Cardiovascular Disease
DX: I48.0 Paroxysmal atrial fibrillation (principal); Z79.01 Long term (current) use of anticoagulants; Z95.0 Presence of cardiac pacemaker; I48.91 Unspecified atrial fibrillation; I87.2 Venous insufficiency (chronic) (peripheral); I25.10 Atherosclerotic heart disease of native coronary artery without angina pectoris; Z95.2 Presence of prosthetic heart valve; Z87.891 Personal history of nicotine dependence; I13.0 Hypertensive heart and chronic kidney disease with heart failure and stage 1 through stage 4 chronic kidney disease, or unspecified chronic kidney disease; N18.9 Chronic kidney disease, unspecified; I50.9 Heart failure, unspecified; Z95.1 Presence of aortocoronary bypass graft; Z86.718 Personal history of other venous thrombosis and embolism; E78.5 Hyperlipidemia, unspecified; K21.9 Gastro-esophageal reflux disease without esophagitis; I65.29 Occlusion and stenosis of unspecified carotid artery; H91.92 Unspecified hearing loss, left ear; I25.2 Old myocardial infarction; G47.33 Obstructive sleep apnea (adult) (pediatric); G25.81 Restless legs syndrome; Z86.73 Personal history of transient ischemic attack (TIA), and cerebral infarction without residual deficits; I73.9 Peripheral vascular disease, unspecified; Z79.82 Long term (current) use of aspirin; Z99.2 Dependence on renal dialysis
CPT/HCPCS: J2704; J7030

== ENCOUNTER → 2017-09-30 | Outpatient (CLI) | payer BC ==
[~2017-09-30] MED LIST changes: +BUMEX2 MG PO; +COLCRYS0.6 MG PO; +COUMADIN 1MG1 MG/TAB PO; +MELAT3MGTAB PO; +MILK OF MA400 MG/52 PO; +NATURE'S BLEND100 M2 PO; +PACERONE200 MG PO; +TRIAMCINOLONE A15 G3 TP
== END ==
LOC: COL.RAD 11:36
DX: N28.89 Other specified disorders of kidney and ureter (principal); N28.1 Cyst of kidney, acquired